=== PATIENT | female | born 1985 | race Caucasian/White ===

== ENCOUNTER → 2025-03-06 15:29 | Outpatient (REF) | payer BC, SELFPAY | LOC: RAD 15:29 | PROVIDERS: ATTENDING PHYSICIAN Student in an Organized Health Care Education/Training Program | DX: M79.605 Pain in left leg (principal) | CPT/HCPCS: 93971 ==

== ENCOUNTER 2025-03-06 16:17 | Emergency (ER) | payer BC, SELFPAY ==
[2025-03-06 16:22] VITALS: BP 171/96
[2025-03-06 17:49] LABS: HCG, Serum Qualitative Screen Negative
[2025-03-06 17:52] LABS: % Basophils 0.3 % (0-2); % Eosinophils 3.1 % (0-6); % Immature Granulocytes 0.2 % (0-0.5); % Lymphocytes 40.4 % (20.5-51.1); % Monocytes 8.6 % (1.7-9.3); % Neutrophils 47.4 % (42.2-75.2); Absolute Eosinophils 0.2 10^3/uL (0-0.7); Absolute Lymphocytes 2.6 10^3/uL (1.2-3.4); Absolute Monocytes 0.6 10^3/uL (0.1-0.6); Absolute Neutrophils 3.1 10^3/uL (1.4-6.5); Hematocrit 30.9 % (37.0-47.0); Mean Corp Hgb Conc. 29.1 g/dL (33.0-37.0); Mean Corpuscular Volume 65.3 fL (81.0-99.0); Nucleated Red Blood Cells % 0 %; Platelet Count 238 10^3/uL (130-400); Red Blood Cell Count 4.73 10^6/uL (4.20-5.40); Red Cell Dist. Width 18.2 % (11.5-14.5); White Blood Cell Count 6.5 10^3/uL (4.8-10.8)
[2025-03-06 17:59] LABS: Blood Urea Nitrogen 15 mg/dl (7-17); Calcium 10.1 mg/dl (8.4-10.2); Carbon Dioxide 29 mmol/L (22-30); Chloride 105 mmol/L (98-107); Glucose 95 mg/dl (70-99); Potassium 4.6 mmol/L (3.5-5.1); Sodium 138 mmol/L (135-145); eGFR > 60.00
--- NOTE | 2025-03-06 18:26 | ED.GENMED ---
History of Present Illness
General
Chief Complaint: DVT/Possible Blood Clot
Source: patient and family
Time Seen by Provider: 03/06/25 17:01
History of Present Illness
History of Present Illness:
Note:
CHIEF COMPLAINT(S)
Left leg pain.
HISTORY OF PRESENT ILLNESS
The patient is a 39-year-old female with a history of asthma, presenting with left leg pain. The pain began as a dull ache on the left leg on Monday and worsened after a five-hour drive, becoming severe upon waking the following morning. The pain
subsequently radiated down to the back of the calf and top of the foot. There is no associated chest pain or shortness of breath. The patient reports a diagnosis of asthma, for which she takes fluticasone/salmeterol (Advair Diskus). She also takes
hydrochlorothiazide for hypertension. She denies additional medications.
The patient's sister mentions a significant family history of blood clots, as both her mother and a grandmothers brother had similar issues. The patient herself has relevant varicose veins, described as starting in the groin and extending down the
leg on the affected side, contributing to concerns about possible deep vein thrombosis (DVT). Additionally, she experiences heavy menstrual bleeding. 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
There is mention of a possible blood disorder in the family.
The patient has bruising hypersensitivity to topical medication bacitracin, which causes hives.
PHYSICAL EXAM
- Left extremity: Minor swelling, slight tenderness in the left calf region. Negative for Homans sign.
- Normal dorsalis pedis pulses bilaterally. Feet are warm and well-perfused bilaterally.
- General: Alert and oriented, no respiratory distress.
- Neurological: No focal motor deficits.
- Skin: Normal.
SOCIAL DETERMINANTS AFFECTING HEALTH
The patient has a work-related lifestyle that includes frequent travel by car, a potential risk factor for DVT.
MEDICATIONS
- Fluticasone/salmeterol (Advair Diskus) for asthma.
- Hydrochlorothiazide for hypertension.
DIFFERENTIAL DIAGNOSIS
The Differential Diagnosis includes, in no particular order and is not limited to:
1. Deep vein thrombosis (DVT)
2. Muscle strain
3. Cellulitis
4. Peripheral vascular disease
5. Lymphedema
6. Nerve compression or radiculopathy
7. Tendonitis
8. Compartment syndrome
9. Varicose vein exacerbation
10. Inflammatory condition such as phlebitis
PLAN
The plan includes starting the patient on anticoagulation therapy to prevent further clot formation and the potential for pulmonary embolism. Review of lab results prior to initiation of medication is advised. A hematology referral is suggested to
evaluate for potential underlying blood disorders. Additionally, instruct the patient on the importance of mobility during long periods of travel and the potential need for long-term anticoagulation based on family history and work conditions. A
test will also be conducted as part of the diagnostic assessment.
CARE-UPDATE
03/06/25 - 18:23
The patient continues to exhibit microcytic anemia, consistent with her history. tests have returned negative. Plan to monitor hemoglobin levels and consider further evaluation for potential causes of anemia unrelated to .
Disposition:
SUMMARY OF ENCOUNTER
The patient is a 39-year-old female with left lower extremity discomfort. An outpatient ultrasound confirms deep vein thrombosis (DVT). no cp or sob or hypoxia to suggest PE. Family states that the patient's grandmother actually had PMR
DISPOSITION
The patient will follow up with a licensing coordinator due to her chronic anemia and has agreed to the plan after discussion with family. She will also discuss hypercoagulable w/u with her licensing coordinator
MEDICATION RECONCILIATION
The patient has been non-compliant with her iron medication due to constipation.
MEDICAL DECISION MAKING
1. Chronic conditions affecting care: Chronic anemia.
2. Data reviewed: Confirmation of DVT via outpatient ultrasound reviewed with radiology.
PATHOLOGIES TO CONSIDER
Pulmonary embolism (due to confirmed DVT).
Phy Exam
Physical Exam
Physical Exam:
.
Course
Orders/Labs/Results
Orders:
Orders
03/06/25 17:16
Test Result ONCE
03/06/25 17:33
Basic Metabolic Panel Urgent
Complete Blood Count/With Diff Urgent
HCG, Serum Qualitative Screen Urgent
03/06/25 18:25
Apixaban [Eliquis] 10 mg PO NOW STA
Abnormal Lab Results
03/06/25
17:33
Hgb 9.0 L g/dL
(12.0-16.0)
Hct 30.9 L %
(37.0-47.0)
MCV 65.3 L fL
(81.0-99.0)
MCH 19.0 L pg
(27.0-31.0)
MCHC 29.1 L g/dL
(33.0-37.0)
RDW 18.2 H %
(11.5-14.5)
03/06/25 17:33
03/06/25 17:33
Vital Signs
Initial and Last Documented VS:
Initial Vital Signs
Temp Resp
99.3 F 18
03/06/25 16:20 03/06/25 16:20
Last Documented Vital Signs
Temp Pulse Resp BP Pulse Ox
99.3 F 89 18 171/96 100
03/06/25 16:20 03/06/25 16:22 03/06/25 16:20 03/06/25 16:22 03/06/25 16:22
*Pulse Oximetry
SaO2: 100
Oxygen Mode of Delivery: Room air
Patient hypoxic: no
*Critical Care Note
Total Time (30-74mins, 75-104mins- exclusive of procedures): Not Applicable
ED Attending Note
-
Portions of this chart may have been created with voice recognition software.� Occasional wrong word or��sound alike� substitutions may have occurred due to the inherent limitations of voice recognition software.
Discharge Plan
Departure
Patient Disposition: Home (Routine Discharge)
Date of Disposition: 03/06/25
Time of Disposition: 18:27
Patient with high blood pressure during this ER visit?: Yes
Discharge Problem:
DVT (deep venous thrombosis)
Instructions: Deep Vein Thrombosis (Blood Clots in the Legs) (DC)
Prescriptions:
New
Eliquis DVT-PE Treat 30D Start 5 mg (74 tabs) tablets,dose pack
See Rx Instructions .ROUTE .COMPLEX Qty: 74 0RF
Rx Instructions:
orally per package directions
Referrals:
Lilliana Ambriz PA-C [Family Provider, [facility]]
Activity Restrictions/Additional Instructions:
Please see your licensing coordinator in the next 1 week for follow-up and reevaluation. Please have your licensing coordinator consider whether you need further workup to rule out a blood clotting disorder. In addition it may be important for you to have your labs
rechecked in light of your chronic anemia. Return immediately for injury of any kind, bleeding of any kind, chest pain, shortness of breath or any other concerns.
Interventions
Interventions:
ED- Cardiac Assessment Last Done: 03/06/25 18:17
ED- Pulmonary Assessment Last Done: 03/06/25 18:17
ED-Peripheral Vascular Assessment Last Done: 03/06/25 18:17
ED-Skin Assessment Last Done: 03/06/25 18:17
Discharge Date and Time
Print Language: ICELANDIC
[2025-03-06] MEDS: ELIQUIS 10 MG PO (18:32)
== END 2025-03-06 18:54 | disposition home or self-care (01) ==
LOC: EMR 16:17
PROVIDERS: EMERGENCY PHYSICIAN Emergency Medicine; FAMILY PHYSICIAN Student in an Organized Health Care Education/Training Program
DX: I82.4Z2 Acute embolism and thrombosis of unspecified deep veins of left distal lower extremity (principal); J45.909 Unspecified asthma, uncomplicated; I10 Essential (primary) hypertension; D50.9 Iron deficiency anemia, unspecified; N92.0 Excessive and frequent menstruation with regular cycle; Z79.01 Long term (current) use of anticoagulants; Z79.51 Long term (current) use of inhaled steroids
CPT/HCPCS: 99283; 80048; 84703; 85025